=== PATIENT | female | born 1980 ===

== ENCOUNTER 2021-03-21 13:24 | Emergency (ER) | payer SELFPAY ==
[~2021-03-21] VITALS: Ht 170.2 cm; Wt 89.0 kg
[2021-03-21] MEDS ORDERED: DEXAMETHASONE 4 MG TABLET ONE (13:40)
[2021-03-21] MEDS ORDERED: DEXAMETHASONE 4 MG TABLET PO ONE (14:00)
[2021-03-21] MEDS ORDERED: PLEASE ENTER ALLERGIES MC SCH (14:00)
[2021-03-21 18:08] VITALS: BP 111/81
== END 2021-03-21 18:14 | disposition home or self-care (01) ==
LOC: ED 14:00
DX: U07.1 COVID-19 (principal); J12.82 Pneumonia due to coronavirus disease 2019; R06.02 Shortness of breath; Z87.891 Personal history of nicotine dependence
CPT/HCPCS: 71045; 93005; 99285; U0003; U0005